=== PATIENT | male | born 1980 | race Hispanic/Latino ===

== ENCOUNTER 2018-10-30 22:47 | Observation (INO) | payer BC, SELFPAY ==
[2018-10-30] MEDS ORDERED: NA CHLORIDE 0.9% 2,000 ML ONE (23:15)
[2018-10-30] MEDS ORDERED: METOPROLOL TARTRATE 5 MG/5 ML INJ IV ONE (23:32)
[2018-10-30] MEDS ORDERED: LORazepam 2 MG/ML VIAL ONE (23:32)
[2018-10-30 23:43] LABS: ALT/SGPT 46 U/L (12-78); AST/SGOT 26 U/L (15-37); Albumin 4.1 g/dL (3.4-5.0); Alkaline Phosphatase 137 U/L (45-117); BUN Blood Urea Nitrogen 16 mg/dL (7-18); Bicarbonate 23 mmol/L (21-32); Bilirubin Direct 0.1 mg/dL (0-0.2); Bilirubin Total 0.6 mg/dL (0.2-1.0); Glucose Level 118 mg/dL (74-106); Potassium 3.3 mmol/L (3.5-5.1); Protein, Total 7.6 g/dL (6.4-8.2); Sodium Level 140 mmol/L (136-145)
[2018-10-30 23:47] LABS: Absolute Lymphocytes (CBC) 1.5 K/uL (0.7-4.9); Absolute Monocytes 0.9 K/uL (0.1-1.3); Basophils % 0.2 % (0-1.3); Eosinophils % 0.3 % (0-4.4); Hematocrit 47.2 % (39.6-49.0); MPV 8.9 fL (7.6-11.3); Monocytes % 9.1 % (3.3-12.3); RBC Red Blood Cell Count 5.39 M/uL (4.33-5.43)
[2018-10-30 23:52] LABS: Protime INR 1.19
[2018-10-31 02:33] LABS: Troponin (Emerg Dept Use Only) 0.1 ng/mL (0.0-0.045)
--- NOTE | 2018-10-31 04:04 | EDPHYS ---
Physician Documentation [facility] Name: Baldev Peters Age: 38 yrs Sex: Male : 1980 Arrival Date: 10/30/2018 Time: 22:48 Bed 3 Private MD: ED Physician David Zacarias HPI: 10/30 23:00 This 38 yrs old Male presents to ER via EMS with complaints of Drug Abuse, pkl Paranoid thoughts. 23:00 The patient presents with anxiety spells, paranoid thoughts and auditory pkl hallucinations. Onset: The symptoms/episode began/occurred today. Patient admits to having 4 days cocaine anf meth binge. Historical: - Allergies: 22:51 No Known Allergies; tl2 - Home Meds: 22:51 None [Active]; tl2 - PMHx: 22:51 None; tl2 - PSHx: 22:51 None; tl2 - Immunization history:: Adult Immunizations up to date. - Social history:: Smoking status: Patient/guardian denies using tobacco, Patient uses street drugs, cocaine, marijuana, Methamphetamine (Meth). - Ebola Screening: : No symptoms or risks identified at this time. ROS: 23:00 Eyes: Negative for injury, pain, redness, and discharge, ENT: Negative for injury, pkl pain, and discharge, Neck: Negative for injury, pain, and swelling, Cardiovascular: Negative for chest pain, palpitations, and edema, Respiratory: Negative for shortness of breath, cough, wheezing, and pleuritic chest pain, Abdomen/GI: Negative for abdominal pain, nausea, vomiting, diarrhea, and constipation, Back: Negative for injury and pain, : Negative for injury, bleeding, discharge, and swelling, MS/Extremity: Negative for injury and deformity, Skin: Negative for injury, rash, and discoloration, Neuro: Negative for headache, weakness, numbness, tingling, and seizure. 23:00 Psych: Positive for anxiety, auditory hallucinations, Negative for homicidal ideation, suicidal ideation. Exam: 23:00 Head/Face: Normocephalic, atraumatic. Eyes: Pupils equal round and reactive to light, pkl extra-ocular motions intact. Lids and lashes normal. Conjunctiva and sclera are non-icteric and not injected. Cornea within normal limits. Periorbital areas with no swelling, redness, or edema. ENT: Nares patent. No nasal discharge, no septal abnormalities noted. Tympanic membranes are normal and external auditory canals are clear. Oropharynx with no redness, swelling, or masses, exudates, or evidence of obstruction, uvula midline. Mucous membranes moist. Neck: Trachea midline, no thyromegaly or masses palpated, and no cervical lymphadenopathy. Supple, full range of motion without nuchal rigidity, or vertebral point tenderness. No Meningismus. Chest/axilla: Normal chest wall appearance and motion. Nontender with no deformity. No lesions are appreciated. 23:00 Cardiovascular: Rate: tachycardic, actual rate is 115 bpm, Rhythm: regular. 23:00 ECG was reviewed by the Attending Physician. 23:00 Respiratory: the patient does not display signs of respiratory distress, Respirations: normal, Breath sounds: are clear throughout. 23:00 Abdomen/GI: Bowel sounds: normal, Palpation: abdomen is soft and non-tender, in all quadrants. 23:00 Back: Exam negative for acute changes. 23:00 : Exam negative for acute changes. 23:00 Musculoskeletal/extremity: Exam is negative for acute changes. 23:00 Skin: Exam negative for rash. 23:00 Neuro: Orientation: is normal, Mentation: is normal, Cranial nerves: grossly normal, Motor: is normal. Vital Signs: 22:51 BP 172 / 111; Pulse 115; Resp 20; Temp 99.8(O); Pulse Ox 95% on R/A; Weight 104.33 kg; tl2 Height 5 ft. 7 in. (170.18 cm); Pain 4/10; 23:24 BP 161 / 100; Pulse 108; Resp 18; Pulse Ox 95% on R/A; tl2 23:42 BP 142 / 89; Pulse 105; Resp 14; Pulse Ox 99% on R/A; tl2 02 00:14 BP 124 / 81; Pulse 80; Resp 16; Pulse Ox 98% on R/A; tl2 01:19 BP 137 / 79; Pulse 77; Resp 16; Pulse Ox 94% on R/A; tl2 02:15 BP 145 / 90; Pulse 78; Resp 12; Pulse Ox 99% on R/A; tl2 04:29 BP 128 / 85; Pulse 73; Resp 17; Pulse Ox 98% on R/A; tl2 10/30 22:51 Body Mass Index 36.02 (104.33 kg, 170.18 cm) tl2 MDM: 10/30 22:48 Patient medically screened. pkl 23:51 Data reviewed: vital signs, nurses notes, lab test result(s), EKG, radiologic studies, pkl plain films. 10/30 22:58 Order name: Acetaminophen; Complete Time: 23:48 pkl 10/30 22:58 Order name: Basic Metabolic Panel; Complete Time: 23:48 pkl 10/30 22:58 Order name: CBC with Diff; Complete Time: 23:50 pkl 10/30 22:58 Order name: ETOH Level; Complete Time: 23:38 pkl 10/30 22:58 Order name: Hepatic Function; Complete Time: 23:48 pkl 10/30 22:58 Order name: PT-INR; Complete Time: 00:37 pkl 10/30 22:58 Order name: Ptt, Activated; Complete Time: 00:37 pkl 10/30 22:58 Order name: Salicylate; Complete Time: 23:48 pkl 10/30 22:58 Order name: Urine Drug Screen; Complete Time: 06:56 pkl 10/30 22:58 Order name: Troponin (emerg Dept Use Only); Complete Time: 23:48 pkl 10/31 01:19 Order name: Troponin (emerg Dept Use Only); Complete Time: 06:56 pkl 10/31 05:15 Order name: Urine Dipstick--Ancillary (enter results) ag4 10/31 05:51 Order name: Lipid Profile; Complete Time: 06:56 EDMS 10/31 06:22 Order name: Urine Dipstick-Ancillary; Complete Time: 06:56 EDMS 10/30 22:58 Order name: EKG; Complete Time: 22:59 pkl 10/30 22:58 Order name: EKG - Nurse/Tech; Complete Time: 23:00 pkl 10/30 22:58 Order name: IV Saline Lock; Complete Time: 23:00 pkl 10/30 22:58 Order name: Labs collected and sent; Complete Time: 23:00 pkl 10/30 22:58 Order name: Urine Dipstick-Ancillary (obtain specimen); Complete Time: 04:49 pkl 10/30 22:59 Order name: XRAY CXR (1 view) pkl 10/31 01:19 Order name: EKG; Complete Time: : pkl Administered Medications: 23:23 Drug: Ativan 1 mg Route: IVP; Site: right antecubital; tl2 10/31 00:39 Follow up: Response: No adverse reaction; Anxiety decreased tl2 10/30 23:24 Drug: NS 0.9% 1000 ml Route: IV; Rate: 1000 ml; Site: right antecubital; tl2 10/31 03:02 Follow up: IV Status: Completed infusion; IV Intake: 1000ml tl2 10/30 23:52 Drug: Lopressor 5 mg Route: IVP; Site: right antecubital; tl2 10/31 00:39 Follow up: Response: No adverse reaction; Blood pressure is lowered tl2 01:30 Drug: K-Dur 20 mEq Route: PO; tl2 05:05 Follow up: Response: No adverse reaction tl2 02:16 Drug: NS 0.9% 1000 ml Route: IV; Rate: 125 ml/hr; Site: left antecubital; tl2 07:01 Follow up: IV Status: Infusion continued upon admission tl2 Disposition: 10/31/18 04:03 Hospitalization ordered by Angie Freire for Observation. Preliminary diagnosis is Chest pain. Elevated Troponin. Substance abuse. - Bed requested for Telemetry/MedSurg (observation). - Status is Observation. sv - Condition is Stable. - Problem is new. - Symptoms are unchanged. UTI on Admission? No Signatures: Dispatcher [employer] EDNM Amarilys Dumont RN RN kl Verde, Stephanie, RN RN sv Lam, Pin, MD MD pkReta Vale RN RN Ofelia Miller RN RN tl2 Corrections: (The following items were deleted from the chart) 04:57 04:03 Hospitalization Ordered by Angie Freire MD for Observation. Preliminary diagnosis is Chest pain. Elevated Troponin. Substance abuse. Bed requested for Telemetry/MedSurg (observation). Status is Observation. Condition is Stable. Problem is new. Symptoms are unchanged. UTI on Admission? No. pkl 06:33 04:57 10/31/2018 04:03 Hospitalization Ordered by Angie Freire MD for Observation. joselin Preliminary diagnosis is Chest pain. Elevated Troponin. Substance abuse. Bed requested for [facility] ER HOLD. Status is Observation. Condition is Stable. Problem is new. Symptoms are unchanged. UTI on Admission? No. fc 08:12 06:33 10/31/2018 04:03 Hospitalization Ordered by Angie Freire MD for Observation. sv Preliminary diagnosis is Chest pain. Elevated Troponin. Substance abuse. Bed requested for Telemetry/MedSurg (observation). Status is Observation. Condition is Stable. Problem is new. Symptoms are unchanged. UTI on Admission? No. kl
--- NOTE | 2018-10-31 04:04 | ER ---
Nurse's Notes [facility] Name: Baldev Peters Age: 38 yrs Sex: Male : 1980 Arrival Date: 10/30/2018 Time: 22:48 Bed 3 Private MD: Diagnosis: Chest pain. Elevated Troponin. Substance abuse Presentation: 10/30 22:48 Presenting complaint: EMS states: Pt has been on a 4 day cocaine and meth binge and ran tl2 out today. Pt states that he began having paranoid thoughts and auditory hallucinations 2 days ago. Denies SI or HI, he wants to be checked out and stay somewhere safe. Transition of care: patient was not received from another setting of care. Onset of symptoms was October 28, 2018. Risk Assessment: Do you want to hurt yourself or someone else? Patient reports no desire to harm self or others. Initial Sepsis Screen: Does the patient meet any 2 criteria? No. Patient's initial sepsis screen is negative. Does the patient have a suspected source of infection? No. Patient's initial sepsis screen is negative. Care prior to arrival: IV initiated. 20 GA, in the right antecubital area. 22:48 Method Of Arrival: EMS: [facility] tl2 22:48 Acuity: SANIYA 2 tl2 Triage Assessment: 22:51 General: Appears in no apparent distress. uncomfortable, Behavior is cooperative, tl2 appropriate for age, anxious. Pain: Complains of pain in left side. Neuro: Level of Consciousness is awake, alert, obeys commands, Oriented to person, place, time, situation, pt reports "mind racing". Cardiovascular: Denies chest pain. Respiratory: Airway is patent Respiratory effort is even, unlabored, Respiratory pattern is regular, symmetrical. GI: No signs and/or symptoms were reported involving the gastrointestinal system. : No signs and/or symptoms were reported regarding the genitourinary system. Derm: Skin is pink, warm \\T\\ dry. Historical: - Allergies: 22:51 No Known Allergies; tl2 - Home Meds: 22:51 None [Active]; tl2 - PMHx: 22:51 None; tl2 - PSHx: 22:51 None; tl2 - Immunization history:: Adult Immunizations up to date. - Social history:: Smoking status: Patient/guardian denies using tobacco, Patient uses street drugs, cocaine, marijuana, Methamphetamine (Meth). - Ebola Screening: : No symptoms or risks identified at this time. Screenin:53 Abuse screen: Denies threats or abuse. Nutritional screening: No deficits noted. tl2 Tuberculosis screening: No symptoms or risk factors identified. Fall Risk None identified. Assessment: 22:53 General: see triage assessment. tl2 23:25 Reassessment: Patient appears in no apparent distress at this time. Patient and/or tl2 family updated on plan of care and expected duration. Pain level reassessed. Patient is alert, oriented x 3, equal unlabored respirations, skin warm/dry/pink. pt is calm and cooperative. Will continue to monitor. 10/31 01:19 Reassessment: Patient appears in no apparent distress at this time. Patient and/or tl2 family updated on plan of care and expected duration. Pain level reassessed. pt appears to be sleeping, RR even and unlabored, VSS stable. Vital Signs: 10/30 22:51 BP 172 / 111; Pulse 115; Resp 20; Temp 99.8(O); Pulse Ox 95% on R/A; Weight 104.33 kg; tl2 Height 5 ft. 7 in. (170.18 cm); Pain 4/10; 23:24 BP 161 / 100; Pulse 108; Resp 18; Pulse Ox 95% on R/A; tl2 23:42 BP 142 / 89; Pulse 105; Resp 14; Pulse Ox 99% on R/A; tl2 10 00:14 BP 124 / 81; Pulse 80; Resp 16; Pulse Ox 98% on R/A; tl2 01:19 BP 137 / 79; Pulse 77; Resp 16; Pulse Ox 94% on R/A; tl2 02:15 BP 145 / 90; Pulse 78; Resp 12; Pulse Ox 99% on R/A; tl2 04:29 BP 128 / 85; Pulse 73; Resp 17; Pulse Ox 98% on R/A; tl2 10/30 22:51 Body Mass Index 36.02 (104.33 kg, 170.18 cm) tl2 Vitals: 02:15 Cardiac Rhythm Assessment Sinus rhythm. tl2 ED Course: 10/30 22:48 Patient arrived in ED. tl2 22:48 David Zacarias MD is Attending Physician. pkl 22:51 Triage completed. tl2 22:51 Arm band placed on right wrist. tl2 22:53 Patient has correct armband on for positive identification. Bed in low position. Call tl2 light in reach. Side rails up X2. 22:53 Maintain EMS IV. Dressing intact. Good blood return noted. Site clean \\T\\ dry. Gauge \\T\\ tl 2 site: 20 g right AC. 22:59 Ofelia Miller RN is Primary Nurse. tl2 23:09 X-ray completed. Portable x-ray completed in exam room. Patient tolerated procedure sg4 well. 23:14 XRAY CXR (1 view) In Process Unspecified. EDMS 10/31 02:16 Inserted saline lock: 20 gauge in left antecubital area, using aseptic technique. Blood tl2 collected. 04:02 Angie Freire MD is Hospitalizing Provider. pkl 05:05 No provider procedures requiring assistance completed. Patient admitted, IV remains in tl2 place. 07:48 Urine Dipstick--Ancillary (enter results) Sent. sv Administered Medications: 10/30 23:23 Drug: Ativan 1 mg Route: IVP; Site: right antecubital; tl2 10/31 00:39 Follow up: Response: No adverse reaction; Anxiety decreased tl2 10/30 23:24 Drug: NS 0.9% 1000 ml Route: IV; Rate: 1000 ml; Site: right antecubital; tl2 10/31 03:02 Follow up: IV Status: Completed infusion; IV Intake: 1000ml tl2 10/30 23:52 Drug: Lopressor 5 mg Route: IVP; Site: right antecubital; tl2 10/31 00:39 Follow up: Response: No adverse reaction; Blood pressure is lowered tl2 01:30 Drug: K-Dur 20 mEq Route: PO; tl2 05:05 Follow up: Response: No adverse reaction tl2 02:16 Drug: NS 0.9% 1000 ml Route: IV; Rate: 125 ml/hr; Site: left antecubital; tl2 07:01 Follow up: IV Status: Infusion continued upon admission tl2 Intake: 03:02 IV: 1000ml; Total: 1000ml. tl2 Outcome: 04:03 Decision to Hospitalize by Provider. pkl 05:05 Admitted to ER Hold. Please see [facility] for further documentation. tl2 05:05 Condition: stable 05:05 Discharge instructions given to patient, Instructed on the need for admit. 08:12 Patient left the ED. sv Signatures: Dispatcher [employer] Jessica Weller RN RN sv Lam, Pin, MD MD pkl Knox, Taylor, RN RN 2 Adina Peters [facility] [place]
--- NOTE | 2018-10-31 04:05 | P.HP ---
Certification for Inpatient Patient admitted to: Observation With expected LOS: <2 Midnights Practitioner: I am a practitioner with admitting privileges, knowledge of patient current condition, hospital course, and medical plan of care. Services: Services provided to patient in accordance with Admission requirements found in Title 42 Section 412.3 of the Code of Federal Regulations Patient History Date of Service: 10/31/18 Reason for admission: chest pain, cocaine and meth intoxication History of Present Illness: Mr Peters is a 38 years old male with history of drug abuse, obesite, who has been binge on cocaine for the last 3 days. He also used meth yesterday. The patient came to ED with palpitations, anxiety, and visual hallucinations. In ER , he received benzodiazepines and beta blockers. Initial EKG shows SR at [address]-T abnormalities. After the patient come down, he was able to tell me that had chest pain, pressure like. He does not know how long it last, about 5/10, retrosternal. Trop I is 0.1 x 2. At this time, the patient chest pain has resolved. Home medications list reviewed: Yes - Past Medical/Surgical History -: obesity -: appendectomy -: cholecystectomy - Family History Family History: Reviewed- Non-Contributory - Social History Smoking Status: Never smoker Alcohol use: No CD- Drugs: Yes Caffeine use: Yes Place of Residence: Home Review of Systems 10-point ROS is otherwise unremarkable Physical Examination - Physical Exam General: Alert, In no apparent distress HEENT: Atraumatic, PERRLA, Mucous membr. moist/pink, EOMI, Sclerae nonicteric Neck: Supple, 2+ carotid pulse no bruit, No LAD, Without JVD or thyroid abnormality Respiratory: Clear to auscultation bilaterally, Normal air movement Cardiovascular: Regular rate/rhythm, Normal S1 S2, Abnormal S4 Gastrointestinal: Normal bowel sounds, No tenderness Musculoskeletal: No tenderness Integumentary: No rashes Neurological: Normal speech, Normal strength at 5/5 x4 extr, Normal tone, Normal affect Lymphatics: No axilla or inguinal lymphadenopathy - Studies Laboratory Data (last 24 hrs) 10/30/18 23:40: PT 14.0 H, INR 1.19, APTT 32.6 10/30/18 23:40: WBC 9.4, Hgb 15.9, Hct 47.2, Plt Count 213 10/30/18 23:00: Sodium 140, Potassium 3.3 L, BUN 16, Creatinine 0.86, Glucose 118 H, Total Bilirubin 0.6, AST 26, ALT 46, Alkaline Phosphatase 137 H Assessment and Plan - Problems (Diagnosis) (1) Chest pain Current Visit: Yes Status: Acute Qualifiers: Chest pain type: precordial pain Qualified Code(s): R07.2 - Precordial pain (2) Methamphetamine intoxication Current Visit: Yes Status: Acute (3) Cocaine intoxication delirium Current Visit: Yes Status: Acute (4) Obesity Current Visit: Yes Status: Acute Qualifiers: Obesity type: unspecified obesity type Obesity classification: unspecified obesity classification Serious obesity comorbidity presence: unspecified whether serious comorbidity present Qualified Code(s): E66.9 - Obesity, unspecified - Plan The patient will be admitted to the hospital under observation due to chest pain with elevated cardiac markers in context of cocaine intoxication. EKG shows no ST-T abnormalities. Will continue with serial trop I, ECHO, consult cardiology. Order ASA, statins. Will be caution with beta karri to avoid hypertensive crisis. - Advance Directives Does patient have a Living Will: No Does patient have a Durable POA for Healthcare: No - Code Status/Comfort Care Code Status Assessed: Yes Code Status: Full Code
[2018-10-31] MEDS ORDERED: ONDANSETRON 4 MG/2 ML VIAL IV PRN (04:43)
[2018-10-31] MEDS ORDERED: ACETAMINOPHEN 500 MG TAB PO PRN (04:43)
[2018-10-31 05:51] LABS: Barbiturates NEGATIVE (NEGATIVE); Benzodiazepines NEGATIVE (NEGATIVE); Cocaine POSITIVE (NEGATIVE); METHAMPHETAM NEGATIVE (NEGATIVE); Methadone NEGATIVE (NEGATIVE); Opiates NEGATIVE (NEGATIVE); Phencyclidine NEGATIVE (NEGATIVE); THC Cannibis NEGATIVE (NEGATIVE)
[2018-10-31 06:22] LABS: Urine Blood NEGATIVE (NEG); Urine Glucose NEGATIVE (NEG); Urine Protein 1+ (NEG)
[2018-10-31] MEDS: ASPIRIN EC 81 MG TAB PO SCH (08:46)
[2018-10-31] MEDS: ENOXAPARIN 40 MG/0.4 ML SQ SCH (08:51)
--- NOTE | 2018-10-31 08:58 | RAD REPORT ---
EXAM DESCRIPTION: RAD - Chest Single View - 10/30/2018 11:13 pm CLINICAL HISTORY: Palpitations COMPARISON: November 2010 TECHNIQUE: AP portable chest image was obtained 2309 hours . FINDINGS: Lungs are clear. Heart and vasculature are normal. No measurable pleural effusion and no p neumothorax. No acute bony abnormality seen. No acute aortic findings suspected. IMPRESSION: No acute cardiopulmonary process. No significant interval change.
[2018-10-31] MEDS ORDERED: INFLUENZA VACCINE (for 3y+) 0.5 ML DOSE IMVAC ONE (09:00)
--- NOTE | 2018-10-31 10:53 | EKG ---
Test Date: 2018-10-31 Test Time: 02:13:38 Machine Washer: KYLIE MEASUREMENT RESULTS: Intervals: Rate: 74 ID: [id number] QRSD: 88 QT: 402 QTc: 446 [place]: P: -13 ID: [id number] QRS: -39 T: -3 INTERPRETIVE STATEMENTS: Normal sinus rhythm Left axis deviation Abnormal ECG Compared to ECG 10/30/2018 22:47:34 Left-axis deviation now present Sinus tachycardia no longer present Left anterior fascicular block no longer present Electronically Signed On 10-31-18 10:52:31 [employer] by Roderick Fenton
--- NOTE | 2018-10-31 10:53 | EKG ---
Test Date: 2018-10-30 Test Time: 22:47:34 Inspector Aligning: CHAVEZ MEASUREMENT RESULTS: Intervals: Rate: 115 LA: 146 QRSD: 88 QT: 344 QTc: 475 [place]: P: -7 LA: 146 QRS: -61 T: 2 INTERPRETIVE STATEMENTS: Sinus tachycardia Left anterior fascicular block Abnormal ECG Compared to ECG 12/08/2010 08:51:11 Left anterior fascicular block now present Sinus bradycardia no longer present Electronically Signed On 10-31-18 10:52:37 [employer] by Roderick Fenton
--- NOTE | 2018-10-31 14:40 | CON ---
CARDIOLOGY CONSULT History: Mr. Peters came to the hospital because he knew he had been using too much cocaine. He has been using it numerous times per day for 4 straight days, also methamphetamine. He ran out of all h is drug supply, began having paranoid thoughts and noticed that he had chest pain. Since being in [facility], troponins have been shown to be elevated. They are 0.1, 0.1 and 0.08. He has a normal c holesterol, normal blood sugar, normal BUN and creatinine, potassium slightly low. Drug screen indic ates there is cocaine in his blood stream and amphetamine screen is negative. The patient has never had myocardial infarction or stroke. Does not use tobacco or significant amounts of alcohol. Physical Examination: General: He is alert, oriented, pleasant, not in distress. Height 5 feet 7 inches, 230 pounds. HEENT: Normal. Lungs: Clear. CARDIAC EXAM: Within normal limits. Abdomen: Soft. Extremities: Normal pulses. Imaging: EKG, leftward axis, otherwise it is normal. The chest x-ray is normal. Impression: Mr. Peters probably is having chest pain from the cocaine and methamphetamine he uses. I doubt if it is an acute coronary syndrome. I would not recommend doing a cardiac cath unless he sh ows some other signs that he needs one. His life depends on him stopping the drug abuse. He probably needs inpatient care or commitment to be able to quit his habits. They are life threatening and he would be very likely return to his drug ab use if he or simply to be discharged. JUWAN/MEREDITH Voice ID: [id number] Report ID: [id number]
[2018-10-31] MEDS ORDERED: ATORVASTATIN 80 MG TAB PO SCH (21:00)
--- NOTE | 2018-10-31 22:19 | PN ---
Date of Progress Note: 10/31/2018 Subjective: The patient is seen and examined. Chart reviewed and case discussed with RN. The patient denies any significant shortness of breath. Still having some twinges of pain. Seen by Cardiology. Medications: List reviewed. Physical Examination: Vital Signs: Temperature 98.4, heart rate 68, blood pressure 125/71, respirations 20, O2 96% on room air. General: Awake, alert, oriented x3. No acute distress. Obese male. CV: S1 and S2. Regular rate and rhythm. Peripheral pulses present. Respiratory: Moving air well bilaterally. No wheezing or stridor. Gastrointestinal: Abdomen is soft, nontender, nondistended. Positive bowel sounds. Extremities: No clubbing, cyanosis, or edema. Neurologic: Nonfocal. Laboratory Data: Troponin 0.10, 0.10, 0.08. UDS positive for cocaine. Assessment And Plan: A 38-year-old male with: 1. Chest pain secondary to cocaine and methamphetamine use. The patient did have elevated troponin levels. Cardiology does not recommend any heart catheterization at this time. Avoid beta-blockers for now. 2. Methamphetamine intoxication. 3. Cocaine intoxication. 4. Obesity, body mass index greater than 30 due to excess calories, counseled. Deep vein thrombosis prophylaxis with Lovenox. 5. Hypokalemia, corrected. We will continue to monitor. Plan: The patient is high risk for repeat drug use and therefore felt that he is not safe to be discharged. Cardiology also recommends commitment and referral to drug rehab. We will have [facility] evaluate the patient and discuss with the patient regarding voluntary transfer to drug rehab. /MEREDITH Voice ID: [id number] Report ID: [id number] JANA
[2018-11-01 06:12] LABS: Absolute Lymphocytes (CBC) 2.6 K/uL (0.7-4.9); Absolute Monocytes 0.6 K/uL (0.1-1.3); Absolute Neutrophil 5.4 K/uL (1.8-8.0); Basophils % 0.3 % (0-1.3); Lymphocytes % 29.1 % (15.3-44.8); MPV 9.2 fL (7.6-11.3); Monocytes % 7.1 % (3.3-12.3); RBC Red Blood Cell Count 5.12 M/uL (4.33-5.43)
[2018-11-01 06:23] LABS: ALT/SGPT 38 U/L (12-78); AST/SGOT 17 U/L (15-37); Albumin 3.2 g/dL (3.4-5.0); Alkaline Phosphatase 166 U/L (45-117); BUN Blood Urea Nitrogen 19 mg/dL (7-18); Bicarbonate 28 mmol/L (21-32); Bilirubin Total 0.4 mg/dL (0.2-1.0); Glucose Level 114 mg/dL (74-106); HDL Cholesterol 32 mg/dL (40-60); LDL Cholesterol, Calculated 57 (<130); Magnesium 2.2 mg/dL (1.8-2.4); Potassium 3.7 mmol/L (3.5-5.1); Protein, Total 6.1 g/dL (6.4-8.2); Sodium Level 142 mmol/L (136-145)
[2018-11-01] MEDS ORDERED: POTASSIUM CL SA 10 MEQ TAB PO ONE (09:00)
[2018-11-01] MEDS: ENOXAPARIN 40 MG/0.4 ML SQ SCH (09:00)
[2018-11-01] MEDS: ASPIRIN EC 81 MG TAB PO SCH (10:37)
--- NOTE | 2018-11-02 03:21 | DS ---
Date of Discharge: 11/01/2018 Consultants: Dr. Fenton with Cardiology. Discharge Diagnoses: 1.Chest pain secondary to drug abuse. 2.Methamphetamine abuse. 3.Cocaine intoxication, delirium. 4.Obesity, body mass index greater than 30. 5.Hypokalemia, replaced. Hospital Course: The patient is a 38-year-old male with history of cocaine abuse and methamphetamine use, who comes in with chest pain. The patient did have some elevated troponin levels. He was star faith on chest pain guidelines. This was thought to be due to his cocaine abuse and methamphetamine ab use. The patient was counseled extensively. He was seen by Cardiology who did not recommend any int ervention at this time. The patient was seen by [facility] for possible commitment and to be placed in dharmesh ab. However, [facility] at this time does not feel that the patient needs to be committed. The patient do es agree to seek help in a rehab center, has been through rehab previously. The patient understands that using illicit substances including cocaine, methamphetamine, and other substances is detrimental to his health and may cause recurrent chest pain, possible myocardial infarction, as well as . He understands the gravity of the situation and plans to seek help through rehab. He was provided w ith resources and contact information. The patient was then discharged to home in a fair condition. Activity: As tolerated. Medications: As per medication reconciliation list. Diet: Heart healthy. Followup: Follow up with primary care physician in 2 to 3 days. The patient is to check in at drug rehab as soon as possible. Return to ER for worsening condition. Absolutely no illicit drug use. Physical Examination: General: Awake, alert, oriented x3. No acute distress. CV: S1, S2. No murmurs. Respiratory: Moving air well bilaterally. No wheezing. Gastrointestinal: Abdomen is soft, nontender, and nondistended. Positive bowel sounds. Extremities: No clubbing, cyanosis, or edema. Neurologic: Nonfocal. SA/MODL Voice ID: [id number] Report ID: [id number]
== END 2018-11-01 11:19 | disposition home or self-care (01) ==
LOC: ER 22:47 → ERHOLD 10-31 04:28 → 2ND 10-31 07:42
PROVIDERS: ADMIT Internal Medicine; ATTEND Internal Medicine
DX: R07.9 Chest pain, unspecified (principal); F15.129 Other stimulant abuse with intoxication, unspecified; F14.921 Cocaine use, unspecified with intoxication delirium; E66.9 Obesity, unspecified; Z68.36 Body mass index [BMI] 36.0-36.9, adult; E87.6 Hypokalemia
CPT/HCPCS: 36415; 71045; 80048; 80053; 80061; 80076; 80307; 80320; 80329; 81003; 83735; 84484; 85025; 85610; 85730; 93005; 96361; 96374; 96375; 99285; G0378; J1650; J7030

== ENCOUNTER 2025-02-05 22:57 | Emergency (ER) | payer OTHER ==
[2025-02-05] MEDS ORDERED: IBUPROFEN 400 MG TAB ONE (23:36)
[2025-02-05] MEDS ORDERED: AMOX/K CLAV 875 MG TAB ONE (23:36)
[2025-02-05] MEDS ORDERED: HYDROCODONE/APAP 7.5/325 MG TAB ONE (23:37)
--- NOTE | 2025-02-05 23:50 | ER ---
Nurse's Notes [facility] Name: Baldev Peters Age: 44 yrs Sex: Male : 1980 Arrival Date: 02/05/2025 Time: 22:57 Bed 11 Private MD: Diagnosis: Disorder of teeth and supporting structures, unspecified Presentation: 02/05 23:11 Chief complaint: Patient states: BILATERAL UPPER TOOTHACHE AND LEFT LOWER...HAS DENTAL br2 APPT TOMORROW. TYLENOL 1500MG TAKEN 2100. Coronavirus screen: Client denies travel out of the [place] in the last 14 days. Ebola Screen: Patient denies exposure to infectious person. Initial Sepsis Screen: Does the patient meet any 2 criteria? No. Patient's initial sepsis screen is negative. Does the patient have a suspected source of infection? No. Patient's initial sepsis screen is negative. Risk Assessment: Do you want to hurt yourself or someone else? Patient reports no desire to harm self or others. Onset of symptoms is unknown. 23:11 Method Of Arrival: Ambulatory br2 23:11 Acuity: SANIYA 5 br2 Triage Assessment: 23:13 General: Appears uncomfortable, Behavior is calm, cooperative. Pain: Complains of pain br2 in left buccal mucosa, right buccal mucosa, upper right third molar, upper right second molar, upper left second molar, upper left third molar, lower left third molar, lower left second molar and lower left first molar. EENT: Reports pain. Historical: - Allergies: 23:13 No Known Allergies; br2 - Home Meds: 23:13 None [Active]; br2 - Immunization history:: Adult Immunizations not up to date. - Infectious Disease History:: Denies. - Social history:: Smoking status: Patient denies any tobacco usage or history of. Patient uses street drugs, Methamphetamine (Meth). Screenin:11 [facility] ED Fall Risk Assessment (Adult) History of falling in the last 3 months, br2 including since admission No falls in past 3 months (0 pts) Confusion or Disorientation No (0 pts) Intoxicated or Sedated No (0 pts) Impaired Gait No (0 pts) Mobility Assist Device Used No (0 pt) Altered Elimination No (0 pt) Score/Fall Risk Level 0 - 2 = Low Risk Oriented to surroundings. Abuse screen: Denies threats or abuse. Denies injuries from another. Nutritional screening: No deficits noted. Tuberculosis screening: No symptoms or risk factors identified. Assessment: 23:11 Reassessment: SEE TRIAGE ASSESSMENT. br2 Vital Signs: 23:11 Height 5 ft. 7 in. ; br2 23:11 BP 155 / 107; Pulse 67; Resp 18; Temp 97.99; Pulse Ox 100% ; Weight 92.99 kg; Height 5 br2 ft. 7 in. ; Pain 8/10; 23:11 Body Mass Index 32.11 (92.99 kg, 170.18 cm) br2 23:11 Pain Scale: Adult br2 ED Course: 22:59 Patient arrived in ED. mr 22:59 Leonardo Hill PA is PHCP. cp 22:59 Juan Miguel Mcarthur MD is Attending Physician. cp 23:11 Patient has correct armband on for positive identification. Bed in low position. Call br2 light in reach. Provided Education on: PLAN OF CARE. 23:11 No provider procedures requiring assistance completed. Patient did not have IV access br2 during this emergency room visit. 23:13 Triage completed. br2 23:13 Arm band placed on. br2 23:43 Lexis Beaulieu, RN is Primary Nurse. br2 Administered Medications: 23:43 Drug: Hydrocodone-Acetaminophen PO (7.5 mg-325 mg) 1 tabs PO once; RASS on ADMIN: br2 Combtv4, Very Agttd3, Agttd2, Rstlss1, AlertClm0, Drwsy-1, Lt Sdtn-2, Mod Sdtn-3, Dp Sdtn-4, UnArsble-5 Route: PO; 02/06 00:04 Follow up: Response: Medication administered at discharge. br2 02/05 23:43 Drug: Ibuprofen PO 800 mg PO once Route: PO; br2 02/06 00:04 Follow up: Response: Medication administered at discharge. br2 02/05 23:43 Drug: Amoxicillin-Clavulanate PO 875 mg PO once Route: PO; br2 02/06 00:04 Follow up: Response: Medication administered at discharge. br2 Medication: 02/05 23:11 VIS not applicable for this client. br2 Outcome: 23:11 Discharged to home ambulatory, br2 23:11 Condition: good 23:11 Discharge instructions given to patient, Instructed on discharge instructions, follow up and referral plans. Demonstrated understanding of instructions, follow-up care, medications, Prescriptions given X 2, 23:49 Discharge ordered by MD. norton 02/06 00:05 Patient left the ED. br2 Signatures: Blessing Forde, Ej Reg mr Leonardo Hill PA PA cp Riddle, Belinda, RN RN br2
--- NOTE | 2025-02-05 23:50 | EDPHYS ---
Physician Documentation [facility] Name: Baldev Peters Age: 44 yrs Sex: Male : 1980 Arrival Date: 02/05/2025 Time: 22:57 Bed 11 Private MD: ED Physician Juan Miguel Mcarthur HPI: 02/05 23:25 This 44 yrs old Male presents to ER via Ambulatory with complaints of cp Toothache. 23:25 The patient presents with pain. The problem is located in the upper and lower jaw. cp Onset: The symptoms/episode began/occurred 1.5 week(s) ago. Duration: The symptoms are continuous, and are steadily getting worse. 23:25 Associated signs and symptoms: Pertinent negatives: dysphagia, fever, inability to eat, cp swelling, vomiting. 23:25 Severity of symptoms: in the emergency department the symptoms are unchanged, despite cp home interventions. Historical: - Allergies: 23:13 No Known Allergies; br2 - Home Meds: 23:13 None [Active]; br2 - Immunization history:: Adult Immunizations not up to date. - Infectious Disease History:: Denies. - Social history:: Smoking status: Patient denies any tobacco usage or history of. Patient uses street drugs, Methamphetamine (Meth). ROS: 23:30 Constitutional: Negative for body aches, chills, fever, poor PO intake, cp 23:30 ENT: Positive for dental pain, Negative for sore throat, difficulty swallowing, cp difficulty handling secretions, 23:30 Respiratory: Negative for cough, shortness of breath, wheezing, 23:30 Abdomen/GI: Negative for abdominal pain, vomiting, diarrhea, constipation, 23:30 Neuro: Negative for altered mental status, headache, 23:30 All other systems are negative, Exam: 23:33 Constitutional: The patient appears in no acute distress, alert, awake, non-toxic, well cp developed, well nourished, 23:33 Head/Face: Normocephalic, atraumatic. cp 23:33 Eyes: Periorbital structures: appear normal, Conjunctiva: normal, no exudate, no injection, Sclera: no appreciated abnormality, Lids and lashes: appear normal, bilaterally, 23:33 ENT: External ear(s): are unremarkable, Ear canal(s): are normal, clear, TM's: dullness, bilaterally, Nose: is normal, Mouth: Lips: moist, Oral mucosa: moist, Gums: normal with healthy appearance, Tongue: is normal, abscess, is not appreciated, Posterior pharynx: Airway: no evidence of obstruction, patent, erythema, is not appreciated, Dental exam: abscess, is not appreciated, dental caries, that is moderate, diffusely, fractured teeth are noted, multiple, pain, that is moderate, specifically in the multiple molars, Voice: is normal, 23:33 Neck: ROM/movement: pain, is not appreciated, limited range of motion, is not appreciated, Lymph nodes: no appreciated lymphadenopathy, 23:33 Chest/axilla: Inspection: normal, 23:33 Cardiovascular: Rate: normal, Rhythm: regular, 23:33 Respiratory: the patient does not display signs of respiratory distress, Respirations: normal, no use of accessory muscles, no retractions, labored breathing, is not present, Breath sounds: are clear throughout, no decreased breath sounds, 23:33 Abdomen/GI: Inspection: abdomen appears normal, 23:33 Neuro: Orientation: to person, place \T\ time. Mentation: is normal, Vital Signs: 23:11 Height 5 ft. 7 in. ; br2 23:11 BP 155 / 107; Pulse 67; Resp 18; Temp 97.99; Pulse Ox 100% ; Weight 92.99 kg; Height 5 br2 ft. 7 in. ; Pain 8/10; 23:11 Body Mass Index 32.11 (92.99 kg, 170.18 cm) br2 23:11 Pain Scale: Adult br2 MDM: 23:20 Medical Screening Exam initiated cp 23:25 Differential diagnosis: dental caries, dental abscess, pericoronitis, aphthous ulcers, cp acute necrotizing ulcerative gingivitis, gingivostomatitis. 23:49 Data reviewed: vital signs, nurses notes, and as a result, I will discharge patient. 23:49 Counseling: I had a detailed discussion with the patient and/or guardian regarding the cp historical points, exam findings, and any diagnostic results supporting the discharge/admit diagnosis, the need for outpatient follow up, for definitive care, a dentist, to return to the emergency department if symptoms worsen or persist or if there are any questions or concerns that arise at home. 23:49 I considered the following discharge prescriptions or medication management in the emergency department Medications were administered in the Emergency Department. See MAR. Administered Medications: 23:43 Drug: Hydrocodone-Acetaminophen PO (7.5 mg-325 mg) 1 tabs PO once; RASS on ADMIN: br2 Combtv4, Very Agttd3, Agttd2, Rstlss1, AlertClm0, Drwsy-1, Lt Sdtn-2, Mod Sdtn-3, Dp Sdtn-4, UnArsble-5 Route: PO; 02/06 00:04 Follow up: Response: Medication administered at discharge. br2 02/05 23:43 Drug: Ibuprofen PO 800 mg PO once Route: PO; br2 02/06 00:04 Follow up: Response: Medication administered at discharge. br2 02/05 23:43 Drug: Amoxicillin-Clavulanate PO 875 mg PO once Route: PO; br2 02/06 00:04 Follow up: Response: Medication administered at discharge. br2 Disposition: 02:22 Co-signature as Attending Physician, Juan Miguel Mcarthur MD I reviewed the patient's care rt provided by the Advanced Practice Provider and agree with the diagnosis and treatment plan. 23:47 Chart complete. cp Disposition Summary: 02/05/25 23:49 Discharge Ordered Notes: Location: Home cp Problem: new cp Symptoms: have improved cp Condition: Stable cp Diagnosis - Disorder of teeth and supporting structures, unspecified cp Followup: cp - With: Private Physician - When: Tomorrow - Reason: Recheck today's complaints Discharge Instructions: - Discharge Summary Sheet cp - Dental Pain cp Forms: - Medication Reconciliation Form cp - Antibiotic Education cp - Prescription Opioid Use cp - Patient Portal Instructions cp - Leadership Thank You Letter cp Prescriptions: - Amoxicillin 875 mg Oral Tablet - take 1 tablet ORAL route every 12 hours for 10 days; 20 tablet; Refills: 0, cp Product Selection Permitted - Diclofenac Sodium 75 mg Oral Tablet Sustained Release - take 1 tablet ORAL route 2 times per day; 30 tablet; Refills: 0, Product cp Selection Permitted Signatures: Leonardo Hill PA PA cp [place], Ryan, MD MD rt Lexis Beaulieu RN RN br2
== END 2025-02-06 00:05 | disposition home or self-care (01) ==
LOC: ER 22:57
DX: K08.89 Other specified disorders of teeth and supporting structures (principal)
CPT/HCPCS: 99283

== ENCOUNTER 2025-06-24 01:53 | Emergency (ER) | payer OTHER ==
--- OUTSIDE RECORDS SUMMARY | 2025-06-24 02:02 | XMS REPORT | Continuity of Care Document ---
Author Name Unknown Address [address] [place] [address] [address] [place] [address] [facility] Address [address] [facility] [address] [place] [address] Care Team Providers Care Search Coordinator Name Role Phone Unavailable Unavailable Unavailable Encounters Start Date/Time End Date/Time Encounter Type Admission Type Attending Clinicians [facility] Facility Care Department Encounter ID Source 2025-02-06 08:30:59 2025-02-06 08:30:59 Outpatient [facility] [id number] Wade Dickson 2025-02-01 09:04:27 2025-02-01 09:04:27 Outpatient [facility] [id number] Wade Dickson
[2025-06-24] MEDS ORDERED: ACETAMINOPHEN 500 MG TAB ONE (02:40)
[2025-06-24] MEDS ORDERED: NA CHLORIDE 0.9% 1,000 ML ONE (02:41)
[2025-06-24 02:55] LABS: Absolute Lymphocytes (CBC) 0.7 K/uL (0.7-4.9); Hematocrit 43.6 % (39.6-49.0); Hemoglobin 15.1 g/dL (13.6-17.9); MCH 29.9 pg (27.0-35.0); MCHC 34.6 g/dL (32.0-36.0); MCV 86.5 fL (80-100); MPV 8.2 fL (7.6-11.3); Nucleated RBC Absolute Count 0.0 (0-0); Nucleated Red Blood Cells % 0.4 % (0-0); RBC Red Blood Cell Count 5.04 M/uL (4.33-5.43); White Blood Count 3.10 thou/uL (4.3-10.9)
[2025-06-24 03:06] LABS: Influenza A Ag Negative; Influenza B Ag Negative; SARS-CoV-2 Antigen Rapid Res Negative (Negative)
[2025-06-24 03:14] LABS: ALT/SGPT 32.0 U/L (16-61); AST/SGOT 25.0 U/L (15-37); Albumin 3.1 g/dL (3.4-5.0); Albumin/Globulin Ratio 0.8 (1.1-1.8); Alkaline Phosphatase 125.0 U/L (45-117); Anion Gap 7.8 mEq/L (5.0-15.0); BUN Blood Urea Nitrogen 12.0 mg/dL (7-18); Globulin 3.8 g/dL (2.3-3.5); Glucose Level 93.0 mg/dL (74-106); Lipase 71.0 U/L (13-75); Potassium 3.8 mEq/L (3.5-5.1)
--- NOTE | 2025-06-24 03:20 | ER ---
Nurse's Notes [facility] Name: Baldev Peters Age: 45 yrs Sex: Male : 1980 Arrival Date: 06/24/2025 Time: 01:53 Bed 8 Private MD: Diagnosis: Headache;HYPONATREMIA Presentation: 06/24 01:56 Chief complaint: Patient states: dehydration, headache and pain all over X5 days. lg3 Coronavirus screen: Client denies travel out of the [place] in the last 14 days. At this time, the client does not indicate any symptoms associated with coronavirus-19. Ebola Screen: No symptoms or risks identified at this time. Initial Sepsis Screen: Does the patient meet any 2 criteria? No. Patient's initial sepsis screen is negative. Does the patient have a suspected source of infection? No. Patient's initial sepsis screen is negative. Risk Assessment: Do you want to hurt yourself or someone else? Patient reports no desire to harm self or others. Onset of symptoms was June 19, 2025. 01:56 Method Of Arrival: EMS: [facility] lg3 01:56 Acuity: SANIYA 3 lg3 Triage Assessment: 01:59 General: Appears in no apparent distress. Behavior is anxious, fussy. Pain: Complains lg3 of pain in everywhere. EENT: No deficits noted. No signs and/or symptoms were reported regarding the EENT system. Neuro: Veloz Agitation-Sedation Scale (RASS): +1 Restless Level of Consciousness is awake, alert, obeys commands, Oriented to person, place, time, situation, Reports headache. Cardiovascular: No deficits noted. Reports chest pain, Heart tones S1 S2 present Capillary refill < 3 seconds Clubbing of nail beds is absent JVD is absent Patient's skin is warm and dry. Respiratory: No deficits noted. Airway is patent Respiratory effort is even, unlabored, Respiratory pattern is regular, symmetrical. GI: No deficits noted. Abdomen is round non-distended, Bowel sounds present X 4 quads. Abd is soft and non tender X 4 quads. Reports lower abdominal pain, upper abdominal pain. : No signs and/or symptoms were reported regarding the genitourinary system. Derm: No deficits noted. Skin is intact, is healthy with good turgor, Skin is dry, Skin is normal, Skin temperature is warm. Musculoskeletal: No deficits noted. Circulation, motion, and sensation intact. Range of motion: intact in all extremities, Reports pain everywhere. Historical: - Allergies: :59 No Known Allergies; lg3 - Home Meds: :59 None [Active]; lg3 - PMHx: :59 Drug abuse; lg3 - PSHx: :59 Appendectomy; Cholecystectomy; lg3 - Immunization history:: Adult Immunizations up to date. - Infectious Disease History:: Denies. - Social history:: Smoking status: Patient denies any tobacco usage or history of. Patient/guardian denies using alcohol, street drugs. Screenin:02 [facility] ED Fall Risk Assessment (Adult) History of falling in the last 3 months, lg3 including since admission No falls in past 3 months (0 pts) Confusion or Disorientation No (0 pts) Intoxicated or Sedated No (0 pts) Impaired Gait No (0 pts) Mobility Assist Device Used No (0 pt) Altered Elimination No (0 pt) Score/Fall Risk Level 0 - 2 = Low Risk Oriented to surroundings, Maintained a safe environment, Educated pt \T\ family on fall prevention, incl call for assistance when getting out of bed, Assessed \T\ reinforced patient's understanding of fall precautions. Abuse screen: Denies threats or abuse. Denies injuries from another. Nutritional screening: No deficits noted. Tuberculosis screening: No symptoms or risk factors identified. Assessment: 02:02 General: see triage assessment. lg3 03:14 Reassessment: Patient appears in no apparent distress at this time. No changes from lg3 previously documented assessment. Patient and/or family updated on plan of care and expected duration. Pain level reassessed. Patient is alert, oriented x 3, equal unlabored respirations, skin warm/dry/pink. 03:28 General: PT to DC after completion of fluid bolus. lg3 Vital Signs: 01:56 BP 133 / 89; Pulse 86; Resp 19; Temp 99.5; Pulse Ox 100% on R/A; Weight 90.72 kg (R); lg3 Height 5 ft. 7 in. (R); Pain 6/10; 03:14 BP 112 / 82; Pulse 74; Resp 16 S; Pulse Ox 98% on R/A; lg3 04:17 BP 126 / 82; Pulse 71; Resp 17 S; Pulse Ox 99% on R/A; lg3 01:56 Body Mass Index 31.32 (90.72 kg, 170.18 cm) lg3 01:56 Pain Scale: Adult lg3 ED Course: 01:54 Patient arrived in ED. lg3 01:55 Roberto Hayes DO is Attending Physician. tt7 01:56 Marry Sandoval RN is Primary Nurse. kb4 01:56 Inserted saline lock: 18 gauge in right antecubital area, using aseptic technique. kb4 Blood collected. Flushed with 10 mL NS. 01:59 Triage completed. lg3 01:59 Arm band placed on right wrist. lg3 02:02 Patient has correct armband on for positive identification. Placed in gown. Bed in low lg3 position. Call light in reach. Side rails up X 1. Client placed on continuous cardiac and pulse oximetry monitoring. NIBP monitoring applied. Door closed. Noise minimized. Warm blanket given. Pillow given. 04:18 No provider procedures requiring assistance completed. IV discontinued, intact, lg3 bleeding controlled, No redness/swelling at site. Pressure dressing applied. Administered Medications: 02:48 Drug: NS 0.9% IV 1000 ml IV at 1 bolus Per protocol; to be given as a bolus over 60 kb4 minutes Route: IV; Rate: 1 bolus; Site: right antecubital; 04:18 Follow up: Response: No adverse reaction; IV Status: Completed infusion; IV Intake: lg3 1000ml 02:48 Drug: Acetaminophen PO 1000 mg PO once Route: PO; kb4 03:16 Follow up: Response: No adverse reaction kb4 02:48 Drug: Droperidol IVP 1.25 mg IVP once Route: IVP; Site: right antecubital; kb4 03:16 Follow up: Response: No adverse reaction kb4 03:28 Drug: Ketorolac IVP 15 mg IVP once Route: IVP; Site: right antecubital; lg3 04:17 Follow up: Response: No adverse reaction lg3 Medication: 02:02 VIS not applicable for this client. lg3 Intake: 04:18 IV: 1000ml; Total: 1000ml. lg3 Outcome: 03:19 Discharge ordered by . tt7 04:18 Discharged to home ambulatory, lg3 04:18 Condition: stable 04:18 Discharge instructions given to patient, Instructed on discharge instructions, follow up and referral plans. Demonstrated understanding of instructions, follow-up care, 04:18 Patient left the ED. lg3 Signatures: Blessing Nugent RN RN lg3 Marry Sandoval RN RN kb4 Roberto Hayes DO DO tt7 Corrections: (The following items were deleted from the chart) 02:03 01:56 Chief complaint: Patient states: headache and pain all over X5 days lg3 lg3
--- NOTE | 2025-06-24 03:20 | EDPHYS ---
Physician Documentation [facility] Name: Baldev Peters Age: 45 yrs Sex: Male : 1980 Arrival Date: 06/24/2025 Time: 01:53 Bed 8 Private MD: ED Physician Roberto Hayes HPI: 06/24 02:40 This 45 yrs old Male presents to ER via EMS with complaints of Headache, tt7 weakness. 02:40 Patient reports that he has not been feeling well since Thursday, on Thursday he felt like tt7 he got overheated while working outside at his job, he works manual labor doing construction, he has also been having a mild nonproductive cough for the past several days, denies fever, states he's had a dull achy headache on and off since Thursday. Past medical history includes hypertension. Historical: - Allergies: 01:59 No Known Allergies; lg3 - Home Meds: :59 None [Active]; lg3 - PMHx: 01:59 Drug abuse; lg3 - PSHx: 01:59 Appendectomy; Cholecystectomy; lg3 - Immunization history:: Adult Immunizations up to date. - Infectious Disease History:: Denies. - Social history:: Smoking status: Patient denies any tobacco usage or history of. Patient/guardian denies using alcohol, street drugs. ROS: 02:45 Constitutional: negative for fever. Cardiovascular: negative for chest pain. tt7 Respiratory: negative for shortness of breath. Abdomen/GI: negative for abdominal pain, nausea, vomiting, diarrhea. MS/Extremity: negative for injury and deformity. Skin: negative for rash. Neuro: negative for focal weakness. Exam: 02:45 Constitutional: vital signs reviewed, well appearing. Head/Face: normocephalic, tt7 atraumatic. Eyes: no conjunctival injection, anicteric sclerae. ENT: mucus membranes moist. Neck: trachea midline, no JVD, no meningismus. Chest/axilla: normal chest wall appearance and motion, nontender, no crepitus. Cardiovascular: regular rate and rhythm, no murmurs, no rubs, no lower extremity edema. Respiratory: normal respiratory effort, no accessory muscle use, lungs CTAB. Abdomen/GI: soft, nondistended, nontender, no guarding or rebound, negative Becerra's sign, no McBurney point tenderness. Back: normal ROM. Skin: warm, dry, intact, normal turgor, normal color, no rash. MS/ Extremity: normal ROM of extremities, no gross deformities. Neuro: alert and oriented with appropriate mental status, normal speech, follows commands, no focal neurologic deficits. Psych: appropriate mood and affect. Vital Signs: 01:56 BP 133 / 89; Pulse 86; Resp 19; Temp 99.5; Pulse Ox 100% on R/A; Weight 90.72 kg (R); lg3 Height 5 ft. 7 in. (R); Pain 6/10; 03:14 BP 112 / 82; Pulse 74; Resp 16 S; Pulse Ox 98% on R/A; lg3 04:17 BP 126 / 82; Pulse 71; Resp 17 S; Pulse Ox 99% on R/A; lg3 01:56 Body Mass Index 31.32 (90.72 kg, 170.18 cm) lg3 01:56 Pain Scale: Adult lg3 MDM: 01:55 Medical Screening Exam initiated tt7 02:45 Differential diagnosis: hypoglycemia, hyponatremia, migraine, tension headache, Acute tt7 kidney injury, rhabdomyolysis, COVID-19 infection, influenza infection. Data reviewed: vital signs, nurses notes, lab test result(s). ED course: Well-appearing 45-year-old with generalized weakness and headache, vital signs are stable, physical exam is reassuring, do not suspect meningitis, no meningeal signs on exam, do not suspect encephalitis, workup ordered including complete blood count, chemistry, lipase, creatinine kinase, flu and COVID antigen swabs, will administer IV fluid bolus, Tylenol, and droperidol and follow-up on laboratory studies. 03:17 ED course: Workup reassuring, very mild hyponatremia with sodium of 131, otherwise tt7 normal chemistry, no other clinically significant lab findings, flu and COVID antigens negative, will administer Toradol for patient's headache, I reassessed the patient and he is feeling improved after interventions, after completion of the patient's emergency department evaluation, I do not suspect a life-threatening or disabling process. Patient is medically stable and not in need of emergent medical intervention. I had a detailed discussion with the patient regarding the historical points, exam findings, emergency department evaluation, diagnostic results, and the discharge diagnosis. I instructed the patient on outpatient management of their condition. I discussed the need for outpatient follow-up with a primary care physician. I informed the patient on return precautions, including the need to return to the ED if symptoms do not improve, worsen, or if there are any questions or concerns that arise at home. The patient was discharged in stable condition. 06/24 02:35 Order name: CBC with Diff; Complete Time: 03:12 tt7 06/24 02:35 Order name: CMP; Complete Time: 03:15 tt7 06/24 02:35 Order name: Lipase; Complete Time: 03:15 tt7 06/24 02:35 Order name: COVID-19 Ag + Flu A+B Ag; Complete Time: 03:12 tt7 06/24 02:35 Order name: CK; Complete Time: 03:15 tt7 06/24 02:35 Order name: IV Saline Lock; Complete Time: 02:48 tt7 06/24 02:35 Order name: Labs collected and sent; Complete Time: 02:48 tt7 Administered Medications: 02:48 Drug: NS 0.9% IV 1000 ml IV at 1 bolus Per protocol; to be given as a bolus over 60 kb4 minutes Route: IV; Rate: 1 bolus; Site: right antecubital; 04:18 Follow up: Response: No adverse reaction; IV Status: Completed infusion; IV Intake: lg3 1000ml 02:48 Drug: Acetaminophen PO 1000 mg PO once Route: PO; kb4 03:16 Follow up: Response: No adverse reaction kb4 02:48 Drug: Droperidol IVP 1.25 mg IVP once Route: IVP; Site: right antecubital; kb4 03:16 Follow up: Response: No adverse reaction kb4 03:28 Drug: Ketorolac IVP 15 mg IVP once Route: IVP; Site: right antecubital; lg3 04:17 Follow up: Response: No adverse reaction lg3 Disposition: 03:20 Co-signature as Attending Physician, Roberto Hayes DO. tt7 Disposition Summary: 06/24/25 03:19 Discharge Ordered Notes: Location: Home tt7 Problem: new tt7 Symptoms: have improved tt7 Condition: Stable tt7 Diagnosis - Headache tt7 - HYPONATREMIA tt7 Followup: tt7 - With: Emergency Department - When: As needed - Reason: Followup: tt7 - With: Private Physician - When: 1 - 2 days - Reason: Recheck today's complaints, Re-evaluation by your physician Discharge Instructions: - Discharge Summary Sheet tt7 - Hyponatremia, [id number] tt7 Forms: - Medication Reconciliation Form tt7 - Antibiotic Education tt7 - Prescription Opioid Use tt7 - Patient Portal Instructions tt7 - Leadership Thank You Letter tt7 Signatures: Dispatcher [employer] EDMS Blessing Nugent RN RN lg3 Marry Sandoval RN RN kb4 Roberto Hayes, DO tt7 Corrections: (The following items were deleted from the chart) 02:36 02:36 CBC+H.LAB.BRZ ordered. EDMS EDMS 02:36 02:36 COMPREHENSIVE METABOLIC PANEL+C.LAB.BRZ ordered. EDMS EDMS 02:36 02:36 LIPASE+C.LAB.BRZ ordered. EDMS EDMS 02:36 02:36 COVID-19 Ag + Flu A+B Ag+I.LAB.BRZ ordered. EDMS EDMS
[2025-06-24] MEDS ORDERED: KETOROLAC 30 MG/ML INJ ONE (03:23)
[2025-06-24 04:54] VITALS: TEMP 99.5
[2025-06-24 04:56] VITALS: BP 126/82; O2SAT 99
== END 2025-06-24 04:18 | disposition home or self-care (01) ==
LOC: ER 01:53
DX: R51.9 Headache, unspecified (principal); E87.1 Hypo-osmolality and hyponatremia; Z11.52 Encounter for screening for COVID-19
CPT/HCPCS: 96361; 85025; 36415; 82550; 83690; 80053; 96375; 96374; 99284; 87428; J1790; J7030; J1885